=== PATIENT | male | born 1965 | race Caucasian/White ===

== ENCOUNTER 2017-01-23 06:23 | Emergency (ER) | payer OTHER ==
[~2017-01-23] VITALS: Ht 170.2 cm; Wt 88.0 kg
[2017-01-23 06:26] VITALS: Ht 170.2 cm; Wt 88.0 kg
[2017-01-23] MEDS ORDERED: ONDANSETRON 4 MG INJ IV STA (06:46)
[2017-01-23] MEDS ORDERED: morphine 4 MG/ML VIAL IV STA (06:46)
--- NOTE | 2017-01-23 06:51 | ERD ---
ER Documentation Chief Complaint Date/Time DATE: 01/23/17 TIME: 06:30 Chief Complaint mid chest pain non radiating and headache x 2 days; HPI 51-year-old male with no significant previous medical history presents the ED complaining of a 3 day history of gradual onset left upper neck/occipital headache and chest pain. Patient works as a tier lift truck operator and pain began 3 days ago after coming home from work. He denies any acute injury. Pain is severe and achy exacerbated by movement. No relieving factors. Denies visual changes , focal weakness or numbness. Also has been having intermittent brief, episodes of mild, sharp, nonradiating chest pain over the last several months. Not accompanied by shortness of breath, nausea, vomiting or diaphoresis. No chest pain currently. Denies abdominal pain or back pain. No leg pain or swelling. No skin rash. No URI symptoms or cough. No fevers or chills. ROS All systems reviewed and are negative except as per history of present illness. Medications Home Meds Active Scripts Hydrocodone/Acetaminophen (Mor[place] 5-325 Tablet) 1 Each Tablet, 1 TAB PO Q8H Y for PAIN, #7 TAB Prov:JORDAN SANDOVAL MD 01/23/17 Diclofenac Sodium* (Diclofenac Sodium*) 50 Mg Tablet.dr, 50 MG PO TID, #30 TAB With food or milk Prov:JORDAN SANDOVAL MD 01/23/17 Allergies Allergies: Coded Allergies: No Known Allergy (Unverified , 01/23/17) PMhx/Soc As per HPI, Reviewed in chart. History of Surgery: No Anesthesia Reaction: No Hx Neurological Disorder: No Hx Respiratory Disorders: No Hx Cardiac Disorders: No Hx Psychiatric Problems: No Hx Miscellaneous Medical Probl: No Hx Alcohol Use: No Hx Substance Use: No Hx Tobacco Use: Yes Smoking Status: Current every day smoker FmHx No stroke or cancer Physical Exam Vitals Vital Signs Date Time Temp Pulse Resp B/P Pulse Ox O2 Delivery O2 Flow Rate FiO2 01/23/17 10:17 98.2 66 18 139/97 98 Room Air 01/23/17 08:23 65 18 134/84 98 Room Air 01/23/17 06:26 98.2 76 19 128/81 98 Physical Exam Const: Alert, moderate distress due to pain Head: Atraumatic Eyes: Normal Conjunctiva ENT: Normal External Ears, Nose and Mouth. Neck: Full range of motion. Left upper cervical paraspinal tenderness. No midline tenderness or stepoff. Resp: Clear to auscultation bilaterally Cardio: Regular rate and rhythm, no murmurs Abd: Soft, non tender, non distended. Normal bowel sounds Skin: No petechiae or rashes Back: No midline or flank tenderness Ext: No cyanosis, or edema Neur: Awake and alert. No focal deficit. CN II- XII intact. Motor and sensort equal bilaterally Psych: Normal Mood and Affect Result Diagram: 01/23/17 0653 01/23/1753 Results 24 hrs Laboratory Tests Test 01/23/17 06:53 White Blood Count 10.510^3/ul Red Blood Count 5.0710^6/ul Hemoglobin 15.3g/dl Hematocrit 46.4% Mean Corpuscular Volume 91.5fl Mean Corpuscular Hemoglobin 30.2pg Mean Corpuscular Hemoglobin Concent 33.0g/dl Red Cell Distribution Width 13.3% Platelet Count 83135^3/UL Mean Platelet Volume 10.5fl Neutrophils % 62.6% Lymphocytes % 27.2% Monocytes % 7.3% Eosinophils % 2.1% Basophils % 0.5% Nucleated Red Blood Cells % 0.0/100WBC Neutrophils # 6.610^3/ul Lymphocytes # 2.810^3/ul Monocytes # 0.810^3/ul Eosinophils # 0.210^3/ul Basophils # 0.110^3/ul Nucleated Red Blood Cells # 0.010^3/ul Prothrombin Time 11.9Sec Prothrombin Time Ratio 0.9 INR International Normalized Ratio 0.88 Activated Partial Thromboplast Time 26.4Sec Sodium Level 139mmol/L Potassium Level 4.3mmol/L Chloride Level 106mmol/L Carbon Dioxide Level 26mmol/L Anion Gap 11 Blood Urea Nitrogen 14mg/dl Creatinine 0.95mg/dl Glucose Level 94mg/dl Calcium Level 9.5mg/dl Total Bilirubin 0.3mg/dl Direct Bilirubin 0.00mg/dl Indirect Bilirubin 0.3mg/dl Aspartate Amino Transf (AST/SGOT) 20IU/L Alanine Aminotransferase (ALT/SGPT) 30IU/L Alkaline Phosphatase 94IU/L Troponin I < 0.012ng/ml Total Protein 7.3g/dl Albumin 4.3g/dl Globulin 3.00g/dl Albumin/Globulin Ratio 1.43 Current Medications Medications (Trade) Dose Ordered Sig/Dolly Route PRN Reason Start Time Stop Time Status Last Admin Dose Admin Morphine Sulfate (morphine) 4 mg ONCE STAT IV 01/23/17 06:46 01/23/17 06:49 DC 01/23/17 06:53 Ondansetron HCl (Zofran Inj) 4 mg ONCE STAT IV 01/23/17 06:46 01/23/17 06:49 DC 01/23/17 06:53 Ketorolac Tromethamine (Toradol) 15 mg ONCE STAT IV 01/23/17 07:44 01/23/17 07:45 DC 01/23/17 07:54 EKG: Time: 06:34. Sinus rhythm. Ventricular rate 80, normal MN and QRS intervals. No acute ST segment elevation or depression. No axis deviation or ectopy. EP Impression: Normal EKG IMAGING: PROCEDURE: CT CERVICAL SPINE WITHOUT CONTRAST CLINICAL INDICATION: 51-year-old male with neck pain. TECHNIQUE: The study was performed utilizing a [employer] VCT 64-slice CT scanner. Direct axial sections were obtained through the cervical spine. Coronal and sagittal re-formations were obtained. One or more of the following dose reduction techniques were utilized: automated exposure control, adjustment of the mA and/or kV according to patient's size or use of iterative reconstruction technique. The images were viewed on a PACS workstation. CTD/ vol = 22.2 mGy; Total Exam DLP = 497.0 mGy-cm. COMPARISON: None. FINDINGS: There is straightening of the normal cervical lordosis. Otherwise, the cervical vertebral bodies have normal heights and anatomic alignment. There is no evidence for acute cervical spine fracture. Mild degenerative changes are seen within the atlantoaxial junction region. 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 At C2-3 there are minimal uncovertebral degenerative changes without significant central or foraminal stenosis. At C3-4 there are mild bilateral uncovertebral and facet degenerative changes resulting in mild bilateral foraminal stenosis. At C4-5 there is mild disk space narrowing with minimal uncovertebral degenerative changes without significant central or foraminal stenosis. At C5-6 there is mild disk space narrowing with minimal uncovertebral degenerative changes with mild right foraminal stenosis. At C6-7 there is mild disk space narrowing. There is no significant central or foraminal stenosis. At C7-T1 the disk space has a normal appearance. There are minimal uncovertebral degenerative changes. There is no significant central or foraminal stenosis. The patient is noted to be edentulous. IMPRESSION: 1. Straightening of the normal cervical lordosis. 2. No CT evidence for acute cervical spine fracture. 3. 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 4. Mild cervical spondylosis. .Pancho Bills MD, MD Date Time Electronically viewed and signed by .Pancho Bills MD, on 01/23/2017 07:31 .M/ PROCEDURE: CT BRAIN WITHOUT CONTRAST CLINICAL INDICATION: 51-year-old male with headaches. TECHNIQUE: The study was performed utilizing a [employer] VCT 64-slice CT scanner. Direct axial sections were obtained from the foramen magnum to the vertex without the use of intravenous contrast material. Sagittal and coronal reformations were obtained. One or more the following dose reduction techniques were utilized: automated exposure control, adjustment of the mA and/or kV according to patient's size or use of iterative reconstruction technique. The images were viewed on a PACS workstation. CTD/vol = 41.0 mGy; Total Exam DLP = 720.2 mGy-cm. COMPARISON: None. FINDINGS: The ventricles have a normal size, shape and position. There is no evidence for mass effect or midline shift. There are no intracranial areas of abnormal attenuation. There is no evidence for acute intra or extra-axial blood. The bony calvarium is intact. There is mild mucosal thickening identified within the partially visualized ethmoid air cells, superior maxillary and sphenoid sinuses. No air-fluid levels are noted. The mastoid air cells are without significant soft tissue. IMPRESSION: 1. The intracranial contents are unremarkable on this noncontrast CT scan of the brain. 2. Mild mucosal thickening paranasal sinuses. .Pancho Bills MD, MD Date Time Electronically viewed and signed by .Pancho Bills MD, MD on 01/23/2017 07:21 .M/ Procedures/MDM DOCUMENTS REVIEWED: ED nurse, no prior records. REEXAMINATION/REEVALUATION: Time: 07:40. Pain minimally relieved. Toradol 15mg IV. [employer] DECISION MAKIN-year-old male with no significant previous medical history presents the ED complaining of a 3 day history of gradual onset left upper neck/occipital headache and chest pain. In terms of the neck pain CT is consistent with calcific tendinitis of the longus coli muscle which will be treated with nonsteroidal anti-inflammatories and analgesics. No evidence of spinal epidural abscess or acute disc herniation. Headache related to the cervical spine pain, CT is negative. Symptoms are not consistent with subarachnoid hemorrhage, meningitis or encephalitis hence lumbar puncture not indicated. Chest pain of uncertain etiology. No radiographic evidence of pneumonia or pneumothorax. No ischemic EKG changes or elevated troponin. Patient works as a tier lift truck operator and venous Dopplers of lower extremities were performed which are negative hence DVT is unlikely. Is a low risk for cardiac event and is appropriate for urgent outpatient follow-up. Stable for discharge with precautionary instructions and urgent outpatient follow-up as counseled. Understands to return to ED if symptoms recur, worsen or any other concerns. Counseled patient and regarding diagnostic workup, diagnosis and need for followup. Departure Diagnosis: Primary Impression: Calcific tendinitis, other site Additional Impressions: Cephalalgia Headache type: unspecified Headache chronicity pattern: episodic headache Intractability: not intractable Qualified Code: R51 - Nonintractable episodic headache, unspecified headache type Chest pain Chest pain type: unspecified Qualified Code: R07.9 - Chest pain, unspecified type Condition: Stable (Improved) JORDAN SANDOVAL MD January 23, 2017 06:51
[2017-01-23 07:17] LABS: ADD SCAN DIFF NO
--- NOTE | 2017-01-23 07:21 | RADRPT ---
PROCEDURE: CT BRAIN WITHOUT CONTRAST CLINICAL INDICATION: 51-year-old male with headaches. TECHNIQUE: The study was performed utilizing a [employer] VCT 64-slice CT scanner. Direct axia l sections were obtained from the foramen magnum to the vertex without the use of intravenous contra st material. Sagittal and coronal reformations were obtained. One or more the following dose reduct ion techniques were utilized: automated exposure control, adjustment of the mA and/or kV according t o patient's size or use of iterative reconstruction technique. The images were viewed on a PACS [employer]. CTD/vol = 41.0 mGy; Total Exam DLP = 720.2 mGy-cm. COMPARISON: None. FINDINGS: The ventricles have a normal size, shape and position. There is no evidence for mass effect or midl ine shift. There are no intracranial areas of abnormal attenuation. There is no evidence for acute intra or extra-axial blood. The bony calvarium is intact. There is mild mucosal thickening identifi ed within the partially visualized ethmoid air cells, superior maxillary and sphenoid sinuses. No a ir-fluid levels are noted. The mastoid air cells are without significant soft tissue. IMPRESSION: 1. The intracranial contents are unremarkable on this noncontrast CT scan of the brain. 2. Mild mucosal thickening paranasal sinuses. .Pancho Bills MD, Date Time Electronically viewed and signed by .Pancho Bills MD, on 01/23/2017 07:21 .M/
--- NOTE | 2017-01-23 07:32 | RADRPT ---
PROCEDURE: CT CERVICAL SPINE WITHOUT CONTRAST CLINICAL INDICATION: 51-year-old male with neck pain. TECHNIQUE: The study was performed utilizing a [employer] VCT 64-slice CT scanner. Direct axia l sections were obtained through the cervical spine. Coronal and sagittal re-formations were obtain ed. One or more of the following dose reduction techniques were utilized: automated exposure control , adjustment of the mA and/or kV according to patient's size or use of iterative reconstruction tech nique. The images were viewed on a PACS workstation. CTD/vol = 22.2 mGy; Total Exam DLP = 497.0 mGy -cm. COMPARISON: None. FINDINGS: There is straightening of the normal cervical lordosis. Otherwise, the cervical vertebral bodies humphreys ve normal heights and anatomic alignment. There is no evidence for acute cervical spine fracture. Mi ld degenerative changes are seen within the atlantoaxial junction region. There is amorphous calcification identified inferior to the left side of the anterior arch of C1 wit h prominent fluid identified within the prevertebral space extending to C5 most consistent with calc ific tendonitis of the longus colli muscle. At C2-3 there are minimal uncovertebral degenerative changes without significant central or foramina l stenosis. At C3-4 there are mild bilateral uncovertebral and facet degenerative changes resulting in mild bila teral foraminal stenosis. At C4-5 there is mild disk space narrowing with minimal uncovertebral degenerative changes without s ignificant central or foraminal stenosis. At C5-6 there is mild disk space narrowing with minimal uncovertebral degenerative changes with mild right foraminal stenosis. At C6-7 there is mild disk space narrowing. There is no significant central or foraminal stenosis. At C7-T1 the disk space has a normal appearance. There are minimal uncovertebral degenerative metz es. There is no significant central or foraminal stenosis. The patient is noted to be edentulous. IMPRESSION: 1. Straightening of the normal cervical lordosis. 2. No CT evidence for acute cervical spine fracture. 3. 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 4. Mild cervical spondylosis. .Pancho Bills MD, MD Date Time Electronically viewed and signed by .Pancho Bills MD, MD on 01/23/2017 07:31 .M/
[2017-01-23 07:41] LABS: INR 0.88; PROTIME 11.9 Sec (12.2-14.2); PT RATIO 0.9
[2017-01-23 07:42] LABS: PARTIAL THROMBOPLASTIN TIME 26.4 Sec (25.0-35.0)
[2017-01-23 07:44] LABS: ALANINE AMINOTRANSFERASE 30 IU/L (13-69); ALBUMIN 4.3 g/dl (3.3-4.9); ALBUMIN/GLOBULIN RATIO 1.43; ALKALINE PHOSPHATASE 94 IU/L (42-121); ANION GAP 11 (8-16); ASPARTATE AMINO TRANSFERASE 20 IU/L (15-46); BILIRUBIN,INDIRECT 0.3 mg/dl (0-1.1); BILIRUBIN,TOTAL 0.3 mg/dl (0.2-1.3); BLOOD UREA NITROGEN 14 mg/dl (7-20); CALCIUM 9.5 mg/dl (8.4-10.2); CARBON DIOXIDE 26 mmol/L (21-31); CHLORIDE 106 mmol/L (97-110); CREATININE 0.95 mg/dl (0.61-1.24); GLUCOSE 94 mg/dl (70-220); POTASSIUM 4.3 mmol/L (3.5-5.1); SODIUM 139 mmol/L (135-144); TOTAL PROTEIN 7.3 g/dl (6.1-8.1)
[2017-01-23] MEDS ORDERED: KETOROLAC 15 MG INJ IV STA (07:44)
[2017-01-23 07:58] LABS: TROPONIN-I < 0.012 ng/ml (0.00-0.12)
[2017-01-23 08:10] LABS: BASOPHIL # 0.1 10^3/ul (0.0-0.1); BASOPHILS % 0.5 % (0.0-2.0); EOSINOPHILS # 0.2 10^3/ul (0.0-0.5); EOSINOPHILS % 2.1 % (0.0-7.0); HEMATOCRIT 46.4 % (42.0-52.0); HEMOGLOBIN 15.3 g/dl (14.0-18.0); LYMPHOCYTES # 2.8 10^3/ul (0.8-2.9); LYMPHOCYTES % 27.2 % (15.0-51.0); MEAN CORPUSCULAR HEMOGLOBIN 30.2 pg (29.0-33.0); MEAN CORPUSCULAR VOLUME 91.5 fl (82.0-101.0); MEAN PLATELET VOLUME 10.5 fl (7.4-10.4); MONOCYTE # 0.8 10^3/ul (0.3-0.9); MONOCYTES % 7.3 % (0.0-11.0); NEUTROPHIL # 6.6 10^3/ul (1.6-7.5); NEUTROPHILS % 62.6 % (39.0-77.0); PLATELET COUNT 217 10^3/UL (140-415); RED BLOOD COUNT 5.07 10^6/ul (4.70-6.10); RED CELL DISTRIBUTION WIDTH 13.3 % (11.5-14.5); WHITE BLOOD COUNT 10.5 10^3/ul (4.8-10.8)
--- NOTE | 2017-01-23 09:05 | RADRPT ---
PROCEDURE: XR Chest. CLINICAL INDICATION: Chest pain TECHNIQUE: Chest AP portable. COMPARISON: No comparison available. FINDINGS: The mediastinal structures are unremarkable. The heart is normal in size and configuration. The pu lmonary vascularity is normal. There is mild bibasilar subsegmental atelectasis. No consolidation is identified. The pleural spaces are unremarkable. The axial skeleton is unremarkable. IMPRESSION: No active intrathoracic disease. RPTAT: HGDB .Shawn Guidry MD, MD Date Time Electronically viewed and signed by .Shawn Guidry MD, MD on 01/23/2017 09:05 .B/
--- NOTE | 2017-01-23 09:22 | RADRPT ---
PROCEDURE: US Lower extremity Venous. CLINICAL INDICATION: Bilateral lower extremity edema , chest pain TECHNIQUE: Multiple sonographic images of the bilateral lower extremity deep venous system was obt ained utilizing grayscale, color-flow, compressive sonography and doppler imaging with augmentation. The images were reviewed on a PACS workstation. COMPARISON: None. FINDINGS: There is normal compressibility and flow within the bilateral common femoral, femoral , posterior ti bial and popliteal veins. RPTAT: AA IMPRESSION: No sonographic evidence for deep venous thrombosis. .Neville Santiago MD, MD Date Time Electronically viewed and signed by .Neville Santiago MD, on 01/23/2017 09:22 .S/
[2017-01-23] MEDS ORDERED: DICL50TA11 PO (10:10)
[2017-01-23] MEDS ORDERED: HYDR-906 PO (10:10)
[2017-01-23 10:17] VITALS: BP 139/97; PULSE 66; RESP 18; TEMP 98.2
== END 2017-01-23 10:18 | disposition home or self-care (01) ==
LOC: E/R 06:23
DX: M65.28 Calcific tendinitis, other site (principal); R40.2252 Coma scale, best verbal response, oriented, at arrival to emergency department; R51 Headache; F17.210 Nicotine dependence, cigarettes, uncomplicated; R40.2142 Coma scale, eyes open, spontaneous, at arrival to emergency department; R40.2362 Coma scale, best motor response, obeys commands, at arrival to emergency department
CPT/HCPCS: 36415; 70450; 71010; 72125; 80053; 84484; 85025; 85610; 85730; 93005; 93970; 96374; 96375; J1885; J2270; J2405; Z7502